=== PATIENT | female | born 1975 | race American Indian/Alaskan Native ===

== ENCOUNTER 2016-12-05 17:48 | Emergency (ER) | payer MEDICARE ==
[2016-12-05] MEDS ORDERED: NORVASC PO ONE (19:04)
[2016-12-05] MEDS ORDERED: XANAX PO ONE (19:04)
[2016-12-05 19:17] LABS: Basophils % (Auto) 0.4 % (0.0-1.8); Eosinophils % (Auto) 2.1 % (0.0-4.3); Hematocrit 39.3 % (30.3-42.9); Hemoglobin 13.6 gm/dl (10.1-14.3); Mean Corpuscular HGB Conc 35 % (30-34); Mean Corpuscular Hemoglobin 33 pg (28-32); Mean Corpuscular Volume 96 fl (79-97); Platelet Count 315 K/mm3 (140-440); Red Blood Count 4.09 M/mm3 (3.65-5.03); Red Cell Distribution Width 13.8 % (13.2-15.2); White Blood Count 10.7 K/mm3 (4.5-11.0)
[2016-12-05 19:22] LABS: Anion Gap 20 mmol/L; BUN/Creatinine Ratio 33; Blood Urea Nitrogen 10 mg/dL (7-17); Calcium 9.1 mg/dL (8.4-10.2); Carbon Dioxide 21 mmol/L (22-30); Chloride 100.2 mmol/L (98-107); Glucose 105 mg/dL (65-100); Potassium 3.9 mmol/L (3.6-5.0); Sodium 137 mmol/L (137-145)
--- NOTE | 2016-12-05 19:38 | Emergency Department Report ---
HPI - General Chief Complaint: Anxiety Time Seen by Provider: 12/05/16 18:49 - HPI HPI: This is a 41 year-old female presents to the emergency department by EMS from home with complaint of some shortness of breath and feelings of anxiety. She also presents with elevated blood pressure. The patient says that she is currently caring for her own children as well as her grandchildren and she was just notified that the landlord is selling a home and has only given them 3 weeks to find other arrangements. This is causing added stress and anxiety to her. She says that she does have previous diagnosis of anxiety and/or panic attacks. She also has a history of hypertension but has not been on any blood pressure medications for a while. She went to [facility] yesterday for similar symptoms and was given a prescription for 2 different blood pressure medications, Norvasc and labetalol. She has not yet taken them but says that they are at the pharmacy ready for her. She denies any fever, back pain, nausea, vomiting. She denies any tobacco or illicit drug use. She has a past medical history of this hypertension as well as muscular dystrophy. ED Past Medical Hx - Past Medical History Hx Hypertension: Yes (2008) Additional medical history: MS - Surgical History Past Surgical History?: No - Social History Smoking Status: Never Smoker Substance Use Type: Marijuana - Medications Home Medications: Home Medications Medication Instructions Recorded Confirmed Last Taken Type Acetaminophen/Diphenhydramine 1 each PO HS 06/02/13 06/02/13 06/07/13 History [Pain Reliever Pm Caplet] Gabapentin 300 mg PO TID 06/02/13 06/02/13 06/07/13 History Hydrochlorothiazide 25 mg PO DAILY 06/02/13 06/02/13 05/25/13 History Ranitidine HCl [Ranitidine 150mg 150 mg PO PRN PRN 06/02/13 06/02/13 03/09/13 History Cap] amLODIPine [Norvasc] 10 mg PO DAILY 06/02/13 06/02/13 06/08/13 08:30 History ALPRAZolam [Xanax TAB] 0.5 mg PO BID PRN #10 tab 12/05/16 Unknown Rx Ondansetron [Zofran Odt] 4 mg PO Q8HR PRN #10 tab.rapdis 12/05/16 Unknown Rx ED Review of Systems ROS: Stated complaint: ANXIETY ATTACK Other details as noted in HPI Comment: All other systems reviewed and negative Constitutional: denies: chills, fever Eyes: denies: eye pain, eye discharge, vision change ENT: denies: ear pain, throat pain Respiratory: shortness of breath. denies: cough Cardiovascular: palpitations. denies: edema Gastrointestinal: denies: abdominal pain, vomiting Genitourinary: denies: urgency, dysuria, discharge Musculoskeletal: denies: back pain, joint swelling, arthralgia Skin: denies: rash, lesions Neurological: denies: headache, weakness, paresthesias Psychiatric: anxiety. denies: suicidal thoughts Physical Exam - Physical Exam Vital Signs: Vital Signs 12/05/16 12/05/16 12/05/16 18:33 19:32 19:34 Temperature 98.5 F 98.7 F Pulse Rate 71 78 78 Respiratory 18 16 Rate Blood Pressure 194/96 196/96 Blood Pressure 196/96 [Left] O2 Sat by Pulse 99 97 Oximetry Physical Exam: GENERAL: The patient is well-developed well-nourished. HENT: Normocephalic. Atraumatic. Patient has moist mucous membranes. EYES: Extraocular motions are intact. Pupils equal reactive to light bilaterally. NECK: Supple. Trachea is midline. CHEST/LUNGS: Clear to auscultation. There is no respiratory distress noted. HEART/CARDIOVASCULAR: Regular. There is no tachycardia. There is no gallop rub or murmur. ABDOMEN: Abdomen is soft, nontender. Patient has normal bowel sounds. There is no abdominal distention. SKIN: Skin is warm and dry. NEURO: The patient is awake, alert, and oriented. The patient is cooperative. The patient has no focal neurologic deficits. The patient has normal speech. MUSCULOSKELETAL: There is no tenderness or deformity. There is no limitation range of motion. There is no evidence of acute injury. ED Course Vital Signs 12/05/16 12/05/16 12/05/16 18:33 19:32 19:34 Temperature 98.5 F 98.7 F Pulse Rate 71 78 78 Respiratory 18 16 Rate Blood Pressure 194/96 196/96 Blood Pressure 196/96 [Left] O2 Sat by Pulse 99 97 Oximetry ED Medical Decision Making - Lab Data Result diagrams: 12/05/16 18:50 12/05/16 18:50 - EKG Data -: EKG Interpreted by Me EKG shows normal: sinus rhythm, axis, intervals, QRS complexes, ST-T waves Rate: normal - EKG Data When compared to previous EKG there are: previous EKG unavailable Interpretation: normal EKG - Radiology Data Radiology results: image reviewed interpreted by me: Chest x-ray does not show any acute process. There are no pleural effusions, obvious pneumonia and there is no pneumothorax. - Medical Decision Making 41-year-old female presents with some shortness of breath and occasional chest pains that she believes is a panic attack and/or anxiety. Given the story she has regarding the need to uproot and move her family within the next 3 weeks, it is understandable why she would have stress and may have anxiety. She does not have any hallucinations, suicidal ideations. She presents with elevated blood pressure as well. Labs are unremarkable including negative troponins 2. Chest x-ray does not show any acute process including no pleural effusions or pneumonia. EKG does not show any signs of ST elevation MA or ischemia. She was given some Xanax for anxiety and blood pressure medication. She was reevaluated multiple times over multiple hours and says she is feeling much better and her blood pressure came down to a much more reasonable level. She has 2 different antihypertensive medications waiting at the pharmacy. She is low on the heart score criteria and has a KUNAL score of 0. She is negative on the pulmonary embolism rule out criteria and low on the well's score criteria. For all these reasons she appears safe for discharge home at this time. She was given referrals for primary care and psych as well as some Xanax for any panic attacks. She will return to the ER with any worsening or symptoms or any acute distress. - Differential Diagnosis anxiety/panic attack, MA, pneumonia, CHF Critical Care Time: No Critical care attestation.: If time is entered above; I have spent that time in minutes in the direct care of this critically ill patient, excluding procedure time. ED Disposition Clinical Impression: Anxiety Hypertension Qualifiers: Hypertension type: essential hypertension Qualified Code(s): I10 - Essential ( primary) hypertension Disposition: DC-01 TO HOME OR SELFCARE Is pt being admited?: No Condition: Stable Instructions: Stress (ED), Panic Disorder (ED), Hypertension (ED), Anxiety (ED) Additional Instructions: Please follow up with a primary care physician in the next few days if possible. Try and stay away from foods that are high in salt and caffeinated products to help with your blood pressure. Keep a blood pressure log. Take the blood pressure medications that were previously prescribed to you. Return to the emergency Department with any worsening of her symptoms or any acute distress. I have given for you a referral to the [facility] so you can speak with someone regarding your anxiety and/or panic attacks. You have been prescribed a medication that is sedating and therefore should not be taken prior to driving, working, and responsible for children and in no way should be mixed with alcohol of any quantity. Prescriptions: ALPRAZolam [Xanax TAB] 0.5 mg PO BID PRN #10 tab PRN Reason: Anxiety Ondansetron [Zofran Odt] 4 mg PO Q8HR PRN #10 tab.rapdis PRN Reason: Nausea Referrals: PRIMARY CAREMD [Primary Care Provider] - 3-5 Days RAUL YEPEZ MD [Staff Physician] - 3-5 Days [facility] [Outside] - 3-5 Days [facility] [Outside] - 3-5 Days Forms: Accompanied Note Time of Disposition: 22:27
[2016-12-05] MEDS ORDERED: NORMODYNE IV ONE (21:19)
[2016-12-05] MEDS ORDERED: MORPHINE IV ONE (21:36)
[2016-12-05 23:07] VITALS: BP 164/92
--- NOTE | 2016-12-06 07:45 | XRay Report ---
Single view chest: History: Shortness of breath, anxiety. Findings: Normal cardiomediastinal silhouette. Trachea is midline. No consolidation, pneumothorax or pleural effusion. Impression: No acute cardiopulmonary findings.
== END 2016-12-05 23:07 | disposition home or self-care (01) ==
LOC: ED 17:48
DX: I10 Essential (primary) hypertension (principal); F41.9 Anxiety disorder, unspecified; F12.10 Cannabis abuse, uncomplicated
CPT/HCPCS: 36415; 71010; 80048; 84484; 85025; 93005; 93010; 96374; 96375; 99285; J2270